=== PATIENT | female | born 1975 | race Caucasian/White ===

== ENCOUNTER 2016-08-20 23:15 | Emergency (ER) | payer OTHER ==
[2016-08-21 02:32] VITALS: BP 134/76
== END 2016-08-21 04:08 | disposition home or self-care (01) ==
LOC: ED 23:15
DX: S71.131A Puncture wound without foreign body, right thigh, initial encounter (principal); W46.0XXA Contact with hypodermic needle, initial encounter; Y93.89 Activity, other specified; Y99.8 Other external cause status; Y92.238 Other place in hospital as the place of occurrence of the external cause

== ENCOUNTER 2016-08-22 23:42 | Emergency (ER) | payer OTHER ==
[2016-08-23 01:11] VITALS: BP 105/55
== END 2016-08-23 01:11 | disposition home or self-care (01) ==
LOC: ED 23:42
DX: R11.0 Nausea (principal); M79.1 Myalgia; T37.5X5A Adverse effect of antiviral drugs, initial encounter; Y92.89 Other specified places as the place of occurrence of the external cause
CPT/HCPCS: Q0162